=== PATIENT | female | born 1970 | race Caucasian/White ===

== ENCOUNTER 2017-02-09 20:31 | Emergency (ER) | payer OTHER ==
[2017-02-09 20:37] VITALS: BP 109/65; BMI 30.8
[2017-02-09] MEDS ORDERED: XYLOCAINE VISCOUS MT STA (21:09)
[2017-02-09] MEDS ORDERED: AUGMENTIN 500 MG/125 MG TAB PO ONE ×2 (21:09→21:41)
[2017-02-09] MEDS ORDERED: TORADOL 60 MG VIAL IM ONE (21:10)
[2017-02-09] MEDS ORDERED: FLAGYL TAB 500 MG PO STA (21:11)
--- NOTE | 2017-02-09 21:16 | DR.GENAD ---
HPI - PCP Primary Care Physician: Stiven Brown - Complaint/Symptoms Chief Complaint Doctors Comments: Patient complains of two right lower molars hurting for the past two days getting worst tonight. States she is a patient of [facility] and she is going to make her an appointment but the appointments are two expensive and she has been trying to hold out until March 2017. She has been using OTC medicines with Oraljel and has been crushing aspirins putting in her two worst teeth with little improvement. She denies fever, chills, nausea or vomiting. States she has not seen her local doctor in a while. Patient informed of suspicious lesion on her chin resembling basal cell. Chief Complaint:: "My tooth has been killing me since last night. 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, 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 - Family History History of Family Medical Conditions: Yes Family Medical History: Diabetes Mellitus, Cancer, [place], Heart Failure, Sudden Cardiac - Social History Does patient currently use any type of tobacco product: No Have you used tobacco products in the last 12 months: No Type of Tobacco Use: None Does any household member use tobacco: No Alcohol Use: None Do you use any recreational Drugs:: No Lives With: Family Lives Where: Home - infectious screening In the last 2 months have you had wt loss of >10#?: NO Have you had fever, night sweats or hemotysis?: No Have you traveled outside the country in the last 6 months?: No Isolation: Standard ROS - Review of Systems Constitutional: No Symptoms Reported, Loss of Appetite. negative: See HPI, Chills, Diaphoresis, Fever, Malaise, Weakness, Irritable, Fatigue, Other Eyes: No Symptoms Reported. negative: See HPI, Eye Pain, Blurred Vision, Tearing, Discharge, Photophobia, Diplopia, Other ENTM: No Symptoms Reported, Mouth Pain, Loose Teeth. negative: See HPI, Ear Pain, Ear Discharge, Pulling on Ears, Hearing Loss, Nose Pain, Nose Discharge, Epistaxis, Nose Congestion, Mouth Swelling, Drooling, Throat Pain, Throat Swelling, Ear Foreign Body Respiratoy: No Symptoms Reported. negative: See HPI, Productive Cough, Non- Productive Cough, Moist Cough, Dry Cough, Hacking Cough, Barking Cough, Brassy Cough, Orthopnea, Short of Breath, Stridor, Wheezing, Hemoptysis, Other Cardiovascular: No Symptoms Reported. negative: See HPI, Chest Pain, Edema, Palpitations, Syncope, Cyanosis, Skin Mottling, Other Gastrointestinal/Abdominal: No Symptoms Reported. negative: See HPI, Abdominal Pain, Constipation, Diarrhea, Nausea, Vomiting, Food Intolerance, Other Genitourinary: No Symptoms Reported Neurological: No Symptoms Reported Musculoskeletal: No Symptoms Reported. negative: See HPI, Back Pain, Gout, Joint Pain, Joint Swelling, Muscle Pain, Muscle Stiffness, Neck Pain, Right, Left, Neck, Chest wall, Rib(s), Back, Shoulder, Arm, Elbow, Forearm, Wrist, Hand , Pelvis, Hip, Leg, Knee, Ankle, Foot, Other Integumentary: No Symptoms Reported Hematologic/Lymphatic: No Symptoms Reported. negative: See HPI, Anemia, Blood Clots, Easy Bleeding, Easy Bruising, Swollen Glands, Lymphadenopathy, Other Endocrine: No Symptoms Reported Psychiatric: No Symptoms Reported. negative: See HPI, Anxiety, Depression, Hallucinations, Excessive crying, Suicidal, Other PE - Vital Signs Vitals: Temperature 98.1 F Pulse Rate 91 Respiratory Rate 15 Blood Pressure 109/65 O2 Sat by Pulse Oximetry 96 - General Limitations: No Limitations General Appearance: Alert, In Distress (moderate) - Head Head Exam: Normal Inspection, Atraumatic, Normocephalic - Eyes Eye exam: Normal Appearance, PERRL, EOMI. negative: Scleral Icterus, Conjunctival Injection, Nystagmus, Miosis, Mydrasis, Periorbital Swelling, Periorbital Tenderness, Other - ENT ENT Exam: Normal Exam, Normal Oropharynx, Normal External Ear Exam, Mucous Membranes Moist, TM's Normal Bilaterally, Other (dental caries right lower molars with chipped teeth with swollen gums) External Ear Exam: Normal External Inspection TM/Canal Exam: Bilateral Normal Nose Exam: Normal Nose Exam Mouth Exam: Normal Inspection Throat Exam: Normal Inspection. negative: Tonsillar Erythema, Tonsillomegaly, Tonsillar Exudate, R Peritonsillar Mass, L Peritonsillar Mass, Muffled Voice, Other - Neck Neck Exam: Normal Inspection, Full ROM, Trachea Midline. negative: Tenderness, Meningismus, Lymphadenopathy, Thyromegaly, Other - Chest Chest Inspection: Normal Inspection, Symmetric Chest Wall Rise. negative: Tenderness - Respiratory Respiratory Exam: Normal Lung Sounds Bilat. negative: Accessory Muscle Use, Chest Wall Tenderness, Prolonged Expiratory Phase, Respiratory Distress, Stridor , Other Respiratory Exam: Bilateral Clear to Auscultation - Cardiovascular Cardiovascular Exam: Regular Rate, Normal Rhythm, Normal Heart Sounds. negative : Bradycardia, Tachycardia, Irregular Rhythm, Systolic Murmur, Diastolic Murmur , Rubs, Gallop, Clicks, JVD, +S1, +S2, +S3, +S4, Other - Abdominal Exam Abdominal Exam: Normal Inspection, Normal Bowel Sounds, Soft Abdominal Tenderness: negative: RUQ, RLQ, LUQ, LLQ, Epigastrium, Suprapubic, Diffuse, Mild, Moderate, Severe, Other - Extremities Extremities Exam: Normal Inspection, Full ROM, Normal Capillary Refill. negative: Tenderness, Edema, Joint Swelling, Calf Tenderness, Other - Back Back Exam: Normal Inspection, Full ROM. negative: Tenderness, (R) CVA Tenderness, (L) CVA Tenderness, Muscle Spasm, Paraspinal Tenderness, Vertebral Tenderness, Rashes, (R) Sciatic Notch Tenderness, (L) Sciatic Notch Tendern, (R ) Straight Leg Raise, (L) Straight Leg Raise, Other - Neurologic Neurological Exam: Alert, Oriented X3, CN II-XII Intact, Normal Gait, Reflexes Normal - Psychiatric Psychiatric Exam: Normal Affect, Normal Mood - Skin Skin Exam: Warm, Dry, Intact, Normal Color, Other (left lower chin with 4mm raised lesion with clear center, teleangectasis) - Diagnosis Discharge Problem: Dental caries into pulp, Pain, dental, Pyorrhea - Discharge Plan Disposition: 01 HOME, SELF-CARE Condition: Stable Prescriptions: Acetaminophen/Codeine Tab [TYLENOL w/CODEINE #3 (300 MG/30 MG) *] 1 tab PO Q4- 6H PRN #30 tab PRN Reason: Pain Amoxicillin 500 mg PO TID #30 cap - Follow ups/Referrals Follow ups/Referrals: STIVEN BROWN [Primary Care Provider] - 3 days - Instructions Instructions: Dental Caries, Dental Pain, Diet and Dental Disease
[2017-02-09] MEDS ORDERED: TORADOL 60 MG VIAL ONE (21:40)
[2017-02-09] MEDS ORDERED: FLAGYL TAB 250 MG PO ONE ×2 (21:41→21:50)
== END 2017-02-09 22:00 | disposition home or self-care (01) ==
LOC: ER 20:31
DX: K02.63 Dental caries on smooth surface penetrating into pulp (principal); K05.6 Periodontal disease, unspecified; K08.89 Other specified disorders of teeth and supporting structures
CPT/HCPCS: 96372; 99282; J1885

== ENCOUNTER 2017-03-28 13:49 | Emergency (ER) | payer OTHER ==
[2017-03-28 13:55] VITALS: BMI 35.5
[2017-03-28 13:56] VITALS: BP 112/80
[2017-03-28] MEDS ORDERED: TORADOL 60 MG VIAL ONE (14:34)
[2017-03-28] MEDS ORDERED: TORADOL 60 MG VIAL IM ONE (14:37)
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
== END 2017-03-28 15:55 | disposition home or self-care (01) ==
LOC: ER 13:49
DX: S63.91XA Sprain of unspecified part of right wrist and hand, initial encounter (principal); S60.221A Contusion of right hand, initial encounter; S62.356A Nondisplaced fracture of shaft of fifth metacarpal bone, right hand, initial encounter for closed fracture; S60.211A Contusion of right wrist, initial encounter; Y04.0XXA Assault by unarmed brawl or fight, initial encounter; Y92.9 Unspecified place or not applicable
CPT/HCPCS: 73100; 73130; 96372; 99282; 99283; J1885

== ENCOUNTER 2017-08-18 16:30 | Emergency (ER) | payer OTHER ==
[2017-08-18] MEDS ORDERED: NS 1000 ML 1,000 ML ONE (16:41)
[2017-08-18] MEDS ORDERED: TORADOL 30 MG VIAL ONE (16:41)
[2017-08-18 16:46] VITALS: BP 117/69; BMI 31.8
[2017-08-18] MEDS ORDERED: NS 1000 ML 1,000 ML IV ONE (16:51)
[2017-08-18] MEDS ORDERED: TORADOL 30 MG VIAL IVP ONE (16:51)
[2017-08-18] MEDS ORDERED: TYLENOL ELIXIR 325 MG UDC PO ONE (16:57)
[2017-08-18] MEDS ORDERED: TYLENOL ELIXIR 325 MG UDC ONE (16:59)
--- NOTE | 2017-08-18 17:03 | DR.GENAD ---
HPI - PCP Primary Care Physician: RODOLFO ALVAREZ - Complaint/Symptoms Chief Complaint Doctors Comments: Patient admits to not getting influenza shot, she was exposed to influenza 3 days ago. She admits generalized body aches, myalgia,headache, nausea and vomiting and headache. She is ill appearing. Chief Complaint:: PATIENT STATED THAT SHE HAS BEEN N/V AND BODY ACHES WITH CHILLS THAT HAS BEEN GOING ON FOR THE LAST 2 DAYS. SHE ALSO STATED THAT SHE HAS BEEN COUGHING AND HER CHEST IS HURTING DUE TO THE COUGHING. 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 - Family History History of Family Medical Conditions: Yes Family Medical History: Diabetes Mellitus, Cancer, [place], Heart Failure, Sudden Cardiac - Social History Does patient currently use any type of tobacco product: No Have you used tobacco products in the last 12 months: No Type of Tobacco Use: None Does any household member use tobacco: No Alcohol Use: None Do you use any recreational Drugs:: No Lives With: Family Lives Where: Home - infectious screening In the last 2 months have you had wt loss of >10#?: NO Have you had fever, night sweats or hemotysis?: No Have you traveled outside the country in the last 6 months?: No Isolation: Standard ROS - Review of Systems Constitutional: Chills, Fever, Weakness, Loss of Appetite Eyes: No Symptoms Reported ENTM: No Symptoms Reported Respiratoy: Non-Productive Cough Cardiovascular: Other (tachycardia) Gastrointestinal/Abdominal: Diarrhea, Nausea, Vomiting Genitourinary: No Symptoms Reported Neurological: Anxiety, Headache, Weakness Musculoskeletal: Muscle Pain Integumentary: No Symptoms Reported Hematologic/Lymphatic: No Symptoms Reported Endocrine: No Symptoms Reported Psychiatric: No Symptoms Reported All Other Systems: Reviewed and Negative PE - Vital Signs Vitals: Temperature 101.2 F Pulse Rate 129 Respiratory Rate 22 Blood Pressure 117/69 O2 Sat by Pulse Oximetry 99 - General Limitations: No Limitations General Appearance: Alert, Anxious - Head Head Exam: Normal Inspection, Atraumatic - Eyes Eye exam: Normal Appearance, PERRL, EOMI - ENT ENT Exam: Normal External Ear Exam, Mucous Membranes Dry External Ear Exam: Normal External Inspection TM/Canal Exam: Bilateral Normal Nose Exam: Other (rhinorrhea) Mouth Exam: Normal Inspection Throat Exam: Other (erythematous) - Neck Neck Exam: Normal Inspection - Chest Chest Inspection: Normal Inspection - Respiratory Respiratory Exam: Normal Lung Sounds Bilat Respiratory Exam: Bilateral Clear to Auscultation - Cardiovascular Cardiovascular Exam: Regular Rate, Normal Rhythm - Abdominal Exam Abdominal Exam: Normal Inspection Abdominal Tenderness: negative: RUQ, RLQ, LUQ, LLQ, Epigastrium, Suprapubic, Diffuse, Mild, Moderate, Severe, Other - Extremities Extremities Exam: Normal Inspection, Full ROM - Back Back Exam: Normal Inspection - Neurologic Neurological Exam: Oriented X3, CN II-XII Intact - Psychiatric Psychiatric Exam: Depressed - Skin Skin Exam: Warm, Dry, Intact Course - Reevaluation 1st: Improved - Education/Counseling Educated On: Treatment, Diagnosis, Prognosis ROR - Labs Reviewed Laboratory Results Reviewed?: Yes (Infuenza A positive) Result Diagrams: 08/18/17 17:03 08/18/17 17:03 Laboratory: WBC 8.9 X10^3/uL (3.6-10.0) 08/18/17 17:03 RBC 4.51 X10^6/uL (3.5-5.4) 08/18/17 17:03 Hgb 13.0 g/dL (12.0-16.0) 08/18/17 17:03 Hct 38.1 % (36.0-47.0) 08/18/17 17:03 MCV 84.5 fL (80.0-100.0) 08/18/17 17:03 MCH 28.7 pg (27.0-34.0) 08/18/17 17:03 MCHC 34.0 g/dL (33.0-35.0) 08/18/17 17:03 RDW 13.8 % (11.6-16.5) 08/18/17 17:03 Plt Count 249 X10^3/uL (150.0-450.0) 08/18/17 17:03 MPV 8.7 fL (7.4-11.0) 08/18/17 17:03 Neut % 85.9 % (42.0-75.0) H 08/18/17 17:03 Lymph % 5.3 % (21.0-51.0) L 08/18/17 17:03 [place] % 8.6 % (0.0-13.0) 08/18/17 17:03 Eos % 0.0 % (0.9-2.9) L 08/18/17 17:03 Baso % 0.2 % (0.2-1.0) 08/18/17 17:03 Neut # 7.6 x10^3/uL (2.2-4.8) H 08/18/17 17:03 Lymph # 0.5 X10^3/uL (1.3-2.9) L 08/18/17 17:03 [place] # 0.8 x10^3/uL (0.3-0.8) 08/18/17 17:03 Eos # 0.0 x10^3/uL (0.0-0.2) 08/18/17 17:03 Baso # 0.0 X10^3/uL (0.0-0.1) 08/18/17 17:03 Absolute Nucleated RBC 0.0 /100WBC 08/18/17 17:03 Influenza Type A (PCR) Positive (NEGATIVE) A 08/18/17 16:41 Influenza Type B (PCR) Negative (NEGATIVE) 08/18/17 16:41 - XRAY XRAY Interpreted by: Radiologist (Chest no acute abnormality) - Diagnosis Discharge Problem: Influenza A - Discharge Plan Condition: Stable - Follow ups/Referrals Follow ups/Referrals: RODOLFO ALVAREZ [Primary Care Provider] - 3 days - Instructions
[2017-08-18 17:13] LABS: BASOPHILS % (AUTO) 0.2 % (0.2-1.0); HEMATOCRIT 38.1 % (36.0-47.0); LYMPHOCYTES # (AUTO) 0.5 X10^3/uL (1.3-2.9); LYMPHOCYTES % (AUTO) 5.3 % (21.0-51.0); MEAN CORPUSCULAR HEMOGLOBIN 28.7 pg (27.0-34.0); MEAN CORPUSCULAR VOLUME 84.5 fL (80.0-100.0); MEAN PLATELET VOLUME 8.7 fL (7.4-11.0); MONOCYTES # (AUTO) 0.8 x10^3/uL (0.3-0.8); MONOCYTES % (AUTO) 8.6 % (0.0-13.0); NEUTROPHILS # (AUTO) 7.6 x10^3/uL (2.2-4.8); NEUTROPHILS % (AUTO) 85.9 % (42.0-75.0); PLATELET COUNT 249 X10^3/uL (150.0-450.0); RED BLOOD COUNT 4.51 X10^6/uL (3.5-5.4); RED CELL DISTRIBUTION WIDTH 13.8 % (11.6-16.5); WHITE BLOOD COUNT 8.9 X10^3/uL (3.6-10.0)
--- NOTE | 2017-08-18 17:21 | RAD ---
Examination: AP chest History: Nausea and vomiting and chills with cough Findings: Normal heart size with clear lungs and pleural spaces. Impression: Within normal limits. Reported By:
[2017-08-18 18:09] LABS: ALANINE AMINOTRANSFERASE 20 Units/L (12-78); ALBUMIN 3.6 g/dL (3.4-5.0); ALKALINE PHOSPHATASE 87 Units/L (46-116); ASPARTATE AMINO TRANSFERASE 11 Units/L (15-37); BLOOD UREA NITROGEN 17 mg/dL (7-18); CALCIUM 8.7 mg/dL (8.5-10.1); CARBON DIOXIDE 23.8 mmol/L (21-32); CHLORIDE 105 mmol/L (98-107); COR NA(FOR HYPERGLY) 140 mmol/L (136-145); CREATININE 0.94 mg/dL (0.55-1.02); SODIUM 140 mmol/L (136-145); TOTAL PROTEIN 7.6 g/dL (6.4-8.2); eGFR BLACK RACES > 60 (>60); eGFR NON BLACK RACES > 60 (>60)
== END 2017-08-18 18:22 | disposition home or self-care (01) ==
LOC: ER 16:36
DX: J11.1 Influenza due to unidentified influenza virus with other respiratory manifestations (principal)
CPT/HCPCS: 36415; 71045; 80053; 85025; 86140; 87502; 96365; 96374; 99283; A4222; J1885

== ENCOUNTER 2017-09-26 10:31 | Emergency (ER) | payer OTHER ==
[2017-09-26 10:39] VITALS: BP 112/57; BMI 28.7
[2017-09-26] MEDS ORDERED: ZOFRAN INJ 4 MG VIAL IVP ONE (11:30)
[2017-09-26] MEDS ORDERED: NS 1000 ML 1,000 ML IV ONE (11:30)
--- NOTE | 2017-09-26 11:32 | DR.NAUSEAF ---
HPI - Time Seen Time seen: 10:20 - Primary Care Physician Primary Care Physician: ADY CHAMPION - Complaints Chief Complaint Doctors Comments: 46 y/o female complains of awakening this a.m. with nausea with vomitting and diarrhea. She states also that members of her household have had similar symptoms and some were diagnosed with the virus, otheers have the Flu. SHe denies recent travel or consumption of raw or poorly prepared meals. Chief Complaint:: PT C/O N/V/D AND ABD PAIN THAT STARTED THIS AM AT 0400,, PT'S FAMILY HAS HAS THE VIRUS.. - Reviewed Nurses Notes Reviewed: Yes - Source History Provided: Patient - Mode of Arrival Mode of Arrival: Wheelchair - Timing Onset of Chief Complaint: 09/25/17 - Context Onset: Spontaneous Recent: Contact Exposure, None PMH - PMH Past Medical History: Yes Past Medical History: Diabetes Past Medical History Comment: DM CONTROLLED BY DIET, SPINAL STENOSIS. 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 - Family History History of Family Medical Conditions: Yes Family Medical History: Diabetes Mellitus, Cancer, [place], Heart Failure, Sudden Cardiac Family Medical History Comment: MD, STROKE, SEIZURES, RENAL FAILURE ,EMPHYSEMA , ASTHMA - Social History Does patient currently use any type of tobacco product: No Have you used tobacco products in the last 12 months: No Type of Tobacco Use: None Does any household member use tobacco: No Alcohol Use: None Do you use any recreational Drugs:: No Lives With: Family Lives Where: Home - infectious screening In the last 2 months have you had wt loss of >10#?: NO Have you had fever, night sweats or hemotysis?: No Have you traveled outside the country in the last 6 months?: No Isolation: Standard ROS - Review of Systems Constitutional: No Symptoms Reported Eyes: No Symptoms Reported ENTM: No Symptoms Reported Respiratoy: No Symptoms Reported Cardiovascular: No Symptoms Reported Gastrointestinal/Abdominal: Diarrhea, Nausea, Vomiting Genitourinary: No Symptoms Reported Neurological: No Symptoms Reported Musculoskeletal: No Symptoms Reported Integumentary: No Symptoms Reported Hematologic/Lymphatic: No Symptoms Reported Endocrine: No Symptoms Reported Psychiatric: No Symptoms Reported All Other Systems: Reviewed and Negative PE - Vital Signs Vitals: Temperature 98.0 F Pulse Rate 100 Respiratory Rate 18 Blood Pressure 112/57 O2 Sat by Pulse Oximetry 100 - General Limitations: No Limitations General Appearance: Alert, In No Apparent Distress - Head Head Exam: Normal Inspection - Eyes Eye exam: Normal Appearance - ENT ENT Exam: Normal Exam - Neck Neck Exam: Normal Inspection, Full ROM - Chest Chest Inspection: Normal Inspection, Symmetric Chest Wall Rise - Respiratory Respiratory Exam: Normal Lung Sounds Bilat - Cardiovascular Cardiovascular Exam: Regular Rate, Normal Rhythm, +S1, +S2 - Abdominal Exam Abdominal Exam: Normal Inspection, Normal Bowel Sounds, Soft - Rectal Rectal Exam: Deferred - Extremities Extremities Exam: Normal Inspection, Full ROM - Back Back Exam: Normal Inspection - Neurologic Neurological Exam: Alert, Oriented X3 - Psychiatric Psychiatric Exam: Normal Affect, Normal Mood - Skin Skin Exam: Warm ROR - Labs Reviewed Result Diagrams: 09/26/17 11:37 09/26/17 11:37 Laboratory: WBC 16.1 X10^3/uL (3.6-10.0) H 09/26/17 11:37 RBC 4.72 X10^6/uL (3.5-5.4) 09/26/17 11:37 Hgb 13.4 g/dL (12.0-16.0) 09/26/17 11:37 Hct 40.0 % (36.0-47.0) 09/26/17 11:37 MCV 84.7 fL (80.0-100.0) 09/26/17 11:37 MCH 28.5 pg (27.0-34.0) 09/26/17 11:37 MCHC 33.7 g/dL (33.0-35.0) 09/26/17 11:37 RDW 14.3 % (11.6-16.5) 09/26/17 11:37 Plt Count 290 X10^3/uL (150.0-450.0) 09/26/17 11:37 Plt Count Comment Adequate (ADEQUATE) 09/26/17 11:37 MPV 8.7 fL (7.4-11.0) 09/26/17 11:37 Neut % 93.9 % (42.0-75.0) H 09/26/17 11:37 Lymph % 2.5 % (21.0-51.0) L 09/26/17 11:37 [place] % 3.2 % (0.0-13.0) 09/26/17 11:37 Eos % 0.2 % (0.9-2.9) L 09/26/17 11:37 Baso % 0.2 % (0.2-1.0) 09/26/17 11:37 Neut # 15.1 x10^3/uL (2.2-4.8) H 09/26/17 11:37 Lymph # 0.4 X10^3/uL (1.3-2.9) L 09/26/17 11:37 [place] # 0.5 x10^3/uL (0.3-0.8) 09/26/17 11:37 Eos # 0.0 x10^3/uL (0.0-0.2) 09/26/17 11:37 Baso # 0.0 X10^3/uL (0.0-0.1) 09/26/17 11:37 Absolute Nucleated RBC 0.1 /100WBC 09/26/17 11:37 Total Counted 100 09/26/17 11:37 Neutrophils % (Manual) 96 % (39-76) H 09/26/17 11:37 Lymphocytes % (Manual) 3 % (13-43) L 09/26/17 11:37 Monocytes % (Manual) 1 % (4-9) L 09/26/17 11:37 Plt Morphology Comment Normal (NORMAL) 09/26/17 11:37 RBC Morphology Normal (NORMAL) 09/26/17 11:37 Sodium 140 mmol/L (136-145) 09/26/17 11:37 Corrected Sodium 141 mmol/L (136-145) 09/26/17 11:37 Potassium 4.4 mmol/L (3.5-5.1) 09/26/17 11:37 Chloride 105 mmol/L (98-107) 09/26/17 11:37 Carbon Dioxide 25.8 mmol/L (21-32) 09/26/17 11:37 BUN 16 mg/dL (7-18) 09/26/17 11:37 Creatinine 0.79 mg/dL (0.55-1.02) 09/26/17 11:37 Est GFR (MDRD) Af Amer > 60 (>60) 09/26/17 11:37 Est GFR (MDRD) Non-Af > 60 (>60) 09/26/17 11:37 Glucose 143 mg/dL (65-99) H 09/26/17 11:37 Calcium 8.7 mg/dL (8.5-10.1) 09/26/17 11:37 Corrected Calcium TNP 09/26/17 11:37 Total Bilirubin 0.30 mg/dL (0.2-1.0) 09/26/17 11:37 AST 10 Units/L (15-37) L 09/26/17 11:37 ALT 18 Units/L (12-78) 09/26/17 11:37 Alkaline Phosphatase 77 Units/L (46-116) 09/26/17 11:37 Total Protein 7.3 g/dL (6.4-8.2) 09/26/17 11:37 Albumin 3.5 g/dL (3.4-5.0) 09/26/17 11:37 Globulin 3.8 g/dL (2.5-4.5) 09/26/17 11:37 Albumin/Globulin Ratio 0.9 Ratio (1.1-2.1) L 09/26/17 11:37 Influenza Type A (PCR) Negative (NEGATIVE) 09/26/17 11:36 Influenza Type B (PCR) Negative (NEGATIVE) 09/26/17 11:36 - Diagnosis Discharge Problem: Gastroenteritis - Discharge Plan Disposition: 01 HOME, SELF-CARE Condition: Stable - Follow ups/Referrals Follow ups/Referrals: NFD,None [Primary Care Provider] - 3 days - Instructions
[2017-09-26] MEDS ORDERED: NS 1000 ML 1,000 ML ONE (11:36)
[2017-09-26] MEDS ORDERED: ZOFRAN INJ 4 MG VIAL ONE (11:36)
[2017-09-26 11:57] LABS: ALANINE AMINOTRANSFERASE 18 Units/L (12-78); ALBUMIN 3.5 g/dL (3.4-5.0); ALKALINE PHOSPHATASE 77 Units/L (46-116); ASPARTATE AMINO TRANSFERASE 10 Units/L (15-37); BLOOD UREA NITROGEN 16 mg/dL (7-18); CALCIUM 8.7 mg/dL (8.5-10.1); CARBON DIOXIDE 25.8 mmol/L (21-32); CHLORIDE 105 mmol/L (98-107); COR NA(FOR HYPERGLY) 141 mmol/L (136-145); CREATININE 0.79 mg/dL (0.55-1.02); SODIUM 140 mmol/L (136-145); TOTAL PROTEIN 7.3 g/dL (6.4-8.2); eGFR BLACK RACES > 60 (>60); eGFR NON BLACK RACES > 60 (>60)
[2017-09-26 12:00] LABS: BASOPHILS % (AUTO) 0.2 % (0.2-1.0); EOSINOPHILS % (AUTO) 0.2 % (0.9-2.9); HEMOGLOBIN 13.4 g/dL (12.0-16.0); LYMPHOCYTES # (AUTO) 0.4 X10^3/uL (1.3-2.9); LYMPHOCYTES % (AUTO) 2.5 % (21.0-51.0); MEAN CORPUSCULAR HEMOGLOBIN 28.5 pg (27.0-34.0); MEAN CORPUSCULAR HGB CONC 33.7 g/dL (33.0-35.0); MEAN CORPUSCULAR VOLUME 84.7 fL (80.0-100.0); MEAN PLATELET VOLUME 8.7 fL (7.4-11.0); MONOCYTES # (AUTO) 0.5 x10^3/uL (0.3-0.8); MONOCYTES % (AUTO) 3.2 % (0.0-13.0); NEUTROPHILS # (AUTO) 15.1 x10^3/uL (2.2-4.8); NEUTROPHILS % (AUTO) 93.9 % (42.0-75.0); PLATELET COUNT 290 X10^3/uL (150.0-450.0); RED BLOOD COUNT 4.72 X10^6/uL (3.5-5.4); RED CELL DISTRIBUTION WIDTH 14.3 % (11.6-16.5); WHITE BLOOD COUNT 16.1 X10^3/uL (3.6-10.0)
[2017-09-26 12:13] LABS: PLATELET MORPHOLOGY COMMENT NORMAL (NORMAL)
[2017-09-26] MEDS ORDERED: PHENERGAN INJ 25 MG IV ONE (13:39)
[2017-09-26] MEDS ORDERED: PHENERGAN INJ 25 MG ONE (13:40)
== END 2017-09-26 14:04 | disposition home or self-care (01) ==
LOC: ER 10:46
DX: K52.89 Other specified noninfective gastroenteritis and colitis (principal)
CPT/HCPCS: 36415; 80053; 85025; 87502; 96365; 96374; 96375; 99282; 99283; A4222; J2405; J2550